=== PATIENT | male | born 1985 | race Caucasian/White ===

== ENCOUNTER 2019-07-25 17:23 | Emergency (ER) | payer BC ==
[2019-07-25 18:32] VITALS: BP 145/81
--- NOTE | 2019-07-25 18:43 | UC ---
Skin Complaint HPI - HPI Summary HPI Summary: 33-year-old male presents with a jaw complaints. He states no dental pain at this time. Pain started over the last day or 2. Pain can be as bad as an up to 8 out of 10. No medicine prior to arrival. He states in the right lower jaw is also feeling some discomfort and lymph node enlargement underneath the jaw. No fevers or chills or recent illness but his ears have been popping lately. No history of tonsil stones in the past. No history of TMJ in the past. Touching or palpating the area worsened symptoms. Nothing improves symptoms. He is going out of town to [place] in a few days and concerned about potential salivary stones or infection. - History of Current Complaint Chief Complaint: UCDentalProblem Time Seen by Provider: 07/25/19 18:39 Stated Complaint: JAW SWELLING Hx Obtained From: Patient Pain Intensity: 8 Aggravating Factor(s): Touch Alleviating Factor(s): Nothing - Allergy/Home Medications Allergies/Adverse Reactions: Allergies Allergy/AdvReac Type Severity Reaction Status Date / Time amoxicillin Allergy Hives Verified 07/25/19 18:28 cefaclor [From Ceclor] Allergy Unknown Verified 07/25/19 18:28 Reaction Details Penicillins Allergy Hives Verified 07/25/19 18:28 sulfamethoxazole Allergy Unknown Verified 07/25/19 18:28 [From Bactrim] Reaction Details trimethoprim [From Bactrim] Allergy Unknown Verified 07/25/19 18:28 Reaction Details PMH/Surg Hx/FS Hx/Imm Hx Previously Healthy: Yes - Surgical History Surgical History: Yes Surgery Procedure, Year, and Place: tonsils and addenoids at age 2. hernia repair at age 15. appendectomy. ORIF right ankle - Family History Known Family History: Positive: Diabetes - Social History Alcohol Use: Weekly Alcohol Amount: 2-3x week Substance Use Type: None Smoking Status (MU): Never Smoked Tobacco Review of Systems All Other Systems Reviewed And Are Negative: Yes ENT: Positive: Other - jaw pain /swelling Physical Exam Triage Information Reviewed: Yes Appearance: Well-Appearing, No Pain Distress, Well-Nourished Vital Signs: Initial Vital Signs Temp 98.6 F 07/25/19 18:28 Pulse 78 07/25/19 18:28 Resp 14 07/25/19 18:28 BP 145/81 07/25/19 18:28 Pulse Ox 100 07/25/19 18:28 Vital Signs Reviewed: Yes Eye Exam: Normal ENT Exam: Normal ENT: Positive: Hearing grossly normal, Pharynx normal, TM dull - b/l serous effusion, Other - Moderate tenderness at the base of the right mandible. Mild lymphadenopathy in the postauricular, submandibular area. Most specifically moderate lymphadenopathy of the superficial parotid. Negative: Nasal drainage, TM red, Tonsillar swelling, Tonsillar exudate, Trismus, Muffled voice, Hoarse voice, Dental tenderness Dental Exam: Normal Neck exam: Normal Neck: Positive: 1 Respiratory Exam: Normal Cardiovascular Exam: Normal Musculoskeletal Exam: Normal Neurological Exam: Normal Psychological Exam: Normal Skin Exam: Normal Course/Dx - Differential Diagnoses - Skin Complaint Differential Diagnoses: Other - salivary stone, lymphadenitis, serous effusion - Diagnoses Provider Diagnosis: Lymphadenitis Discharge ED - Sign-Out/Discharge Documenting (check all that apply): Patient Departure All imaging exams completed and their final reports reviewed: No Studies - Discharge Plan Condition: Good Disposition: HOME Prescriptions: Doxycycline Hyclate 100 mg PO BID #14 tablet Patient Education Materials: Adenitis (ED) Referrals: Dylon Hall MD [Primary Care Provider] - 3 Days Additional Instructions: Likely the diagnosis is lymphadenitis potentially of the parotid . As we discussed it could be potentially a salivary stone. Consider using sour candies. He will have fluid behind both ears. Consider fluticasone nasal spray as well. Please follow-up with your primary care doctor if there are any concerns. - Billing Disposition and Condition Condition: GOOD Disposition: Home
== END 2019-07-25 19:00 | disposition home or self-care (01) ==
LOC: UCCORT 17:23
DX: I88.9 Nonspecific lymphadenitis, unspecified (principal); Z88.0 Allergy status to penicillin; Z88.1 Allergy status to other antibiotic agents; Z88.2 Allergy status to sulfonamides
CPT/HCPCS: 99212; G0463

== ENCOUNTER 2019-09-21 10:36 | Emergency (ER) | payer BC ==
--- OUTSIDE RECORDS SUMMARY | 2019-09-21 10:45 | XMS REPORT | Continuity of Care Document ---
:1985 External Reference #:[id number] Author Name Gustavo Mora M.D. (transmitted by agent of provider Mali Guadalupe) Address [address] [place] [address] Care Team Providers Name Role Phone Dylon Hall MD - Family Care Team Information Rehabilitation Inspector Medicine Problems Description No Information Available Social History Type Date Description Comments Sex Unknown Tobacco Use Start: Unknown Never Smoked Cigarettes ETOH Use Current Alcohol Use - 1-3 Days A Week. Recreational Drug Use Never Used Drugs Allergies, Adverse Reactions, Alerts Active Allergies Reaction Severity Comments Date sulfa 08/16/2019 Medications Description No Active Medications Immunizations Description No Information Available Vital Signs Date Vital Result Comment 08/16/2019 9:45am Weight 196.00 lb Height 65 inches 5'5" BMI (Body Mass Index) 32.6 kg/m2 BP Systolic 111 mmHg BP Diastolic 62 mmHg Heart Rate 68 /min O2 % BldC Oximetry 97 % Body Temperature 98.2 F Pain Level 0 Results Description No Information Available Procedures Description No Information Available Medical Devices Description No Information Available Encounters Description No Information Available Assessments Description No Information Available Plan of Treatment No Information Available Functional Status Description No Information Available Mental Status Description No Information Available Referrals Description No Information Available
[2019-09-21 11:07] VITALS: BP 123/80
--- NOTE | 2019-09-21 11:33 | UC ---
FLU HPI - HPI Summary HPI Summary: 33 y/o male presents to the urgent care c/o Nausea, 4 episodes of diarrhea, hot /cold sweats, headache, body aches since yesterday. He has not taken any medications to alleviate symptoms. He has been drinking fluids and eating well. He ate a bowl of cereals this morning. Then he felt very nauseous. VALDES and body aches if 5/10. He denies diarrhea, he has been urinating well. Pt denies any cough, fever, SOB, dizziness, chest pain, abdominal pain, neck pain or rash or recent travel outside the country recently. - History of Current Complaint Chief Complaint: UCRespiratory Stated Complaint: HEADACHE,NAUSEA,BODY ACHES Time Seen by Provider: 09/21/19 11:29 Hx Obtained From: Patient Onset/Duration: Gradual Onset, Lasting Days - 1 day, Still Present Severity Currently: Mild Severity Initially: Moderate Pain Intensity: 5 - body aches, VALDES, nausea Pain Scale Used: 0-10 Numeric Associated Signs & Symptoms: Positive: Myalgia, Cough, Nasal Congestion - clear , Headache, Diarrhea - 4 episodes of loose stool and nasusea. Negative: Fever, Vomiting - Risk Factors Influenza Risk Factors: Negative - Allergy/Home Medications Allergies/Adverse Reactions: Allergies Allergy/AdvReac Type Severity Reaction Status Date / Time amoxicillin Allergy Hives Verified 09/21/19 11:04 cefaclor [From Ceclor] Allergy Unknown Verified 09/21/19 11:04 Reaction Details Penicillins Allergy Hives Verified 09/21/19 11:04 sulfamethoxazole Allergy Unknown Verified 09/21/19 11:04 [From Bactrim] Reaction Details trimethoprim [From Bactrim] Allergy Unknown Verified 09/21/19 11:04 Reaction Details Home Medications: Home Medications Ondansetron ODT TAB* [Zofran 4 MG Odt TAB*] 4 mg PO Q8H PRN #9 tab.odt 09/21/19 [Rx] PMH/Surg Hx/FS Hx/Imm Hx Previously Healthy: Yes - Pt denies PMHX - Surgical History Surgical History: Yes Surgery Procedure, Year, and Place: tonsils and addenoids at age 2. hernia repair at age 15. appendectomy. ORIF right ankle - Family History Known Family History: Positive: Diabetes - Social History Occupation: Employed Full-time Lives: With Family Alcohol Use: Occasionally Alcohol Amount: 2-3x week Substance Use Type: None Smoking Status (MU): Never Smoked Tobacco Review of Systems All Other Systems Reviewed And Are Negative: Yes Constitutional: Positive: Chills, Fatigue, Other - body aches Skin: Positive: Negative Eyes: Positive: Negative ENT: Positive: Nasal Discharge - clear, Other - PND Respiratory: Positive: Negative Cardiovascular: Positive: Negative Gastrointestinal: Positive: Diarrhea - 4 episodes of loose stool sinc yesterday , better today, Nausea - worse today. Negative: Vomiting Genitourinary: Positive: Negative Motor: Positive: Negative Neurovascular: Positive: Negative Musculoskeletal: Positive: Myalgia Neurological/Mental Status: Positive: Headache Psychological: Positive: Negative Is Patient Immunocompromised?: No Physical Exam - Summary Physical Exam Summary: VITAL SIGNS: Reviewed. GENERAL: Patient is a well developed and nourished male who is sitting comfortably in the examining table. Patient is not in any acute respiratory distress. HEAD AND FACE: No signs of trauma. No ecchymosis, hematomas or skull depressions. No sinus tenderness. EYES: PERRLA, EOMI x 2, No injected conjunctiva, no nystagmus. No photophobia. EARS: Hearing grossly intact. Ear canals and tympanic membranes are within normal limits. MOUTH: Positive pharynx with mild erythema, no exudates, No B/L tonsillar enlargement , no exudate. Uvula in midline. edematous nasal mucosa w/ clear nasal discharge, clear PND NECK: Supple, trachea is midline, Positive anterior cervical lymphadenopathy, no JVD, no carotid bruit, no c-spine tenderness, neck with full ROM. No meningeal signs, no Kernig's or brudzinskis signs. CHEST: Symmetric, no tenderness at palpation LUNGS: Clear to auscultation bilaterally. No wheezing or crackles. CVS: Regular rate and rhythm, S1 and S2 present, no murmurs or gallops appreciated. ABDOMEN: Soft, non-tender. No signs of distention. No rebound no guarding, and no masses palpated. Bowel sounds are normal. EXTREMITIES: FROM in all major joints, no edema, no cyanosis or clubbing. NEURO: Alert and oriented x 3. No acute neurological deficits. Pt follows commands. SKIN: Dry and warm Triage Information Reviewed: Yes Vital Signs: Initial Vital Signs Temp 99 F 09/21/19 11:04 Pulse 99 09/21/19 11:04 Resp 16 09/21/19 11:04 BP 123/80 09/21/19 11:04 Pulse Ox 97 09/21/19 11:04 Flu Course/Dx - Course Course Of Treatment: 33 y/o male presents to the urgent care c/o Nausea, 4 episodes of diarrhea, hot /cold sweats, headache, body aches since yesterday. He has not taken any medications to alleviate symptoms. He has been drinking fluids and eating well. He ate a bowl of cereals this morning and then he felt very nauseous today. VALDES and body aches if 5/10. He denies diarrhea, he has been urinating well. Pt denies any cough, fever, SOB, dizziness, chest pain, abdominal pain, neck pain or rash or recent travel outside the country recently. Hx obtained. Pt w/ a viral syndrome on examination. PE: WNL. Pt given Zofran PO and Tylenol PO to alleviate symptoms by nurse. Pt tolerated well medication and felt better. Rapid influenza A&B: negative. Pt Rx Zofran PO as directed below. Pt Advised on close observation n his symptoms and if symptoms worsen w/ severe abdominal pain N/V and fever to go immediately to the ER for further management. Otherwise , advised to increase fluid intake, eat soft meals, rest. F/u w/ PCP if not improvement of symptoms. Pt explained D/C instructions. Pt understood and agreed w/ plan of care. Pt left the clinic ambulating, A&OX3 - Differential Dx/Diagnosis Differential Diagnosis/HQI/PQRI: Broncholiolitis, Influenza, Pneumonia, Upper Respiratory Infection Provider Diagnosis: Viral syndrome, Nausea Discharge ED - Sign-Out/Discharge Documenting (check all that apply): Patient Departure - D/C home All imaging exams completed and their final reports reviewed: No - Discharge Plan Condition: Stable Disposition: HOME-RECOMMEND TO ED Prescriptions: Ondansetron ODT TAB* [Zofran 4 MG Odt TAB*] 4 mg PO Q8H PRN #9 tab.odt PRN Reason: Nausea/Vomiting Patient Education Materials: Viral Syndrome (ED) Forms: *Work Release Referrals: Dylon Hall MD [Primary Care Provider] - 3 Days Additional Instructions: 1- Rapid influenza A&B: negative. Encourage hand washing and wear a mask to avoid spreading. 2-Please continue taking Tylenol PO q6-8hrs prn as instructed after meals to alleviate fever, and sore throat. Increase fluid intake w/ gatorade, eat well , rest and avoid strenuous exercise 3- Take Zofran PO only if nausea persists or you develop vomiting. However if symptoms worsen, w/ fever and severe abdominal pain, , please go immediately to the ER for further management. 4-If symptoms do not improve please f/u with your PCP in 3 days for further evaluation and treatment. - Billing Disposition and Condition Condition: STABLE Disposition: Home-Recommend to ED
[2019-09-21] MEDS ORDERED: Ondansetron ODT TAB* 4 MG PO ONE (11:41)
[2019-09-21] MEDS ORDERED: Acetaminophen TAB* 325 MG PO ONE (11:41)
[2019-09-21 11:51] LABS: Influenza A Molecular Negative (Negative); Influenza B Molecular Negative (Negative)
== END 2019-09-21 12:37 | disposition home health service (06) ==
LOC: UCCORT 10:36
DX: B34.9 Viral infection, unspecified (principal); R11.0 Nausea; R19.7 Diarrhea, unspecified; R51 Headache; M79.10 Myalgia, unspecified site; R05 Cough; R09.81 Nasal congestion; Z88.0 Allergy status to penicillin; Z88.1 Allergy status to other antibiotic agents; Z88.2 Allergy status to sulfonamides
CPT/HCPCS: 99212; A9270-GY; G0463